=== PATIENT | male | born 1995 | race Caucasian/White ===

== ENCOUNTER 2025-02-24 17:18 | Emergency (ER) | payer SELFPAY ==
[~2025-02-24] VITALS: Ht 170.2 cm; Wt 63.5 kg
[2025-02-24] MEDS ORDERED: KETOROLAC TROMETHAMINE INJ 30 MG/ML VIAL ONE (18:02)
[2025-02-24] MEDS ORDERED: CYCLOBENZAPRINE 10 MG TABLET ONE (18:02)
[2025-02-24] MEDS: KETOROLAC TROMETHAMINE INJ 30 MG/ML VIAL IM ONE (18:09)
[2025-02-24] MEDS: CYCLOBENZAPRINE 10 MG TABLET PO ONE (18:09)
[2025-02-24] MEDS ORDERED: CYCL5TAB PO (18:18)
[2025-02-24 18:21] VITALS: BP 140/75; TEMP 97.9; O2SAT 98
== END 2025-02-24 18:21 | disposition home or self-care (01) ==
LOC: ER 17:18
DX: M54.50 Low back pain, unspecified (principal)
CPT/HCPCS: 99283; 96372; J1885